=== PATIENT | male | born 1955 | race Caucasian/White ===

== ENCOUNTER → 2017-01-17 | Outpatient (CLI) | payer MEDICARE, BC ==
--- NOTE | 2017-01-17 15:59 | KCIC ---
PROCEDURE Brain MRI without contrast. HISTORY Headaches. TECHNIQUE Multiplanar and multi sequence magnetic resonance imaging of the brain was performed without contrast. COMPARISON None. FINDINGS There is no restricted diffusion to suggest acute or subacute infarction. There is no susceptibility effect to suggest hemorrhage. There is no mass effect or midline shift. There is no hydrocephalus. There are multiple scattered focal areas of T2/FLAIR hyperintensity within the cerebral white matter, a nonspecific finding. 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 The orbits are unremarkable. There is mild left frontal and left anterior ethmoid sinus mucosal thickening. There is fluid within the bilateral mastoid air cells. There are normal flow voids within the cerebral vessels. IMPRESSION 1. No acute intracranial finding. 2. Multiple scattered focal areas of signal change within the cerebral white matter, a nonspecific finding likely due to chronic small vessel disease. The possibility of superimposed foci of signal change due to chronic migraine headaches can also be considered given the patient history. 3. Mild left frontal and anterior left ethmoid sinus mucosal thickening and fluid within the bilateral mastoid air cells. Electronically signed by: Dawna Cuevas (Jan 17, 2017 15:58:54)
== END | disposition home or self-care (01) ==
LOC: KCIC MRI 15:05
PROVIDERS: ATTEND Family Medicine
DX: R51 Headache (principal)
CPT/HCPCS: 70551

== ENCOUNTER → 2017-07-12 | Day surgery (SDC) | payer MEDICARE, BC ==
[~2017-07-12] MED LIST: ASPI-630 PO; CLOP75TA PO; CRESTOR10 MG PO; DULA1.5P SQ; FURO20TA3 PO; HYDROmorphone 2 MG/ML VIAL IV PRN; INSU100V13 SQ; INSU100V31 SQ; IV RINGERS,LACTATED 1000ML 1,000 ML IV SCH; LIDOCAINE 1% 1 ML SYRINGE. ID PRN; LIDOCAINE 2% PF Vial for OR 5 ML VIAL. ONE; LOSA50TA6 PO; METF-620 PO; METO50TA2 PO; METOPROLOL TARTRATE 5 MG/5 ML VIAL. IVP ONE; METOPROLOL TARTRATE 5 MG/5 ML VIAL. ONE; MORPHINE SULFATE 2 MG/ML DISP.SYRIN. IV PRN; ONDANSETRON PF 4 MG/2 ML VIAL. IV PRN; PANT40TA5 PO; PROCHLORPERAZINE 10 MG/2 ML VIAL. IV PRN; PROPOFOL 40 ML IV ONE; QUET25TA5 PO; fentaNYL PF VIAL 100 MCG/2 ML VIAL IV PRN
[2017-07-12 10:21] VITALS: BP 116/64
--- NOTE | 2017-07-13 11:05 | PATHOLOGY ---
PATHOLOGY REPORT * * * * * * * * FINAL DIAGNOSIS: A. Duodenal biopsies: - No significant pathologic abnormalities. B. Colonic mucosa, random colon biopsies: - No significant pathologic abnormalities. C. Colon biopsies, cecal polyp: - Tubular adenoma. D. Colon biopsies, transverse colon polyp: - Tubular adenoma. (JPM:epifanio; 07/13/2017) COMMENT: Sections of the duodenal biopsy reveal multiple segments of duodenal and small intestine mucosa. Where best oriented, the mucosal villi appear normal. There are no sprue-like changes or significant inflammatory changes. Sections of the random colon biopsy reveal multiple segments of colonic mucosa containing a few mucosal-associated lymphoid aggregates. There is no evidence of a chronic destructive colitis, lymphocytic colitis, or collagenous colitis. : Sections of the cecal and transverse colon biopsies reveal tubular adenomas showing no high-grade dysplasia or evidence of malignancy. (JPM:epifanio; 07/13/2017) REPORT ELECTRONICALLY SIGNED BY: Joshua Mejia M.D. DATE/TIME: 07/13/2017 11:04 * * * * * * * * GROSS PATHOLOGY: A. Received in formalin labeled "Valente Arizmendi, duodenal biopsy, r/o sprue," are multiple segments of howard soft tissue measuring from 0.1 up to 0.3 cm in maximum dimension. The specimen is submitted entirely in cassette A1. B. Received in formalin labeled "random colon, diarrhea," are multiple segments of howard soft tissue measuring from 0.1 up to 0.3 cm in maximum dimension. The specimen is submitted entirely in cassette B1. C. Received in formalin labeled "cecal polyp biopsy," are two segments of howard soft tissue measuring 0.6 and 0.8 cm in maximum dimension. The specimen is submitted entirely in cassette C1. D. Received in formalin labeled "transverse colon polyp," are several segments of howard soft tissue measuring from 0.4 up to 0.8 cm in maximum dimension. The specimen is submitted entirely in cassette D1. (JPM; 07/12/17) INITIAL CPT CODE(S): A; 11155 B; 20776 C; 89843 D; 55180 Professional services performed by [facility] at [facility] [address] [place] [id number] Technical services performed by [facility] at [address] [place] [address], [address], [place] [address]. SPECIMEN(S) RECEIVED: A.Duodenal biopsy, r/o celiac B.Random colon biopsy for diarrhea C.Cecal polyp biopsy D.Transverse colon polyp CLINICAL HISTORY: GERD, diarrhea PATIENT: TETOVALENTE MOORE /AGE: 111/24/1955 (Age: 61) PATIENT #: [id number] ALT CASE #: SPECIMEN COLLECTION DATE: 07/12/2017 SPECIMEN RECEIVED DATE: 07/12/2017 [facility] - [address] [place] [address] - PHONE: [phone] * * * END OF REPORT * * *
== END | disposition home or self-care (01) ==
LOC: ENDOS 07:34
PROVIDERS: ATTEND Internal Medicine Gastroenterology
DX: D12.0 Benign neoplasm of cecum (principal); K63.5 Polyp of colon; K29.50 Unspecified chronic gastritis without bleeding; K31.89 Other diseases of stomach and duodenum; E11.42 Type 2 diabetes mellitus with diabetic polyneuropathy; E78.00 Pure hypercholesterolemia, unspecified; I11.9 Hypertensive heart disease without heart failure; J44.9 Chronic obstructive pulmonary disease, unspecified; E66.9 Obesity, unspecified; Z68.44 Body mass index [BMI] 60.0-69.9, adult; F41.9 Anxiety disorder, unspecified; F32.9 Major depressive disorder, single episode, unspecified; Z86.69 Personal history of other diseases of the nervous system and sense organs; Z87.39 Personal history of other diseases of the musculoskeletal system and connective tissue; Z90.49 Acquired absence of other specified parts of digestive tract; Z86.39 Personal history of other endocrine, nutritional and metabolic disease
CPT/HCPCS: 43239; 45380; 45385; 88305; J2704; J3490; J2001

== ENCOUNTER → 2017-08-31 | Outpatient (CLI) | payer MEDICARE, BC ==
[2017-07-12 10:21] VITALS: BP 116/64
[~2017-08-31] MED LIST changes: -HYDROmorphone 2 MG/ML VIAL IV PRN; -IV RINGERS,LACTATED 1000ML 1,000 ML IV SCH; -LIDOCAINE 1% 1 ML SYRINGE. ID PRN; -LIDOCAINE 2% PF Vial for OR 5 ML VIAL. ONE; -METOPROLOL TARTRATE 5 MG/5 ML VIAL. IVP ONE; -METOPROLOL TARTRATE 5 MG/5 ML VIAL. ONE; -MORPHINE SULFATE 2 MG/ML DISP.SYRIN. IV PRN; -ONDANSETRON PF 4 MG/2 ML VIAL. IV PRN; -PROCHLORPERAZINE 10 MG/2 ML VIAL. IV PRN; -PROPOFOL 40 ML IV ONE; -fentaNYL PF VIAL 100 MCG/2 ML VIAL IV PRN
--- NOTE | 2017-08-31 09:40 | KCIC ---
MR of the left shoulder Indication: Left shoulder pain for months. Crepitus. Technique: Standard multiplanar sequences are obtained. Findings: Mild motion degradation. Acromioclavicular joint: Mildly degenerative. Small undersurface osteophytes. Mass effect upon the supraspinatus with narrowing of the rotator cuff outlet. Rotator cuff: Thickening and signal compatible with tendinosis. No measurable tear or rupture. No significant subdeltoid bursal fluid. Glenohumeral cartilage: Mild chondromalacia. Fluid: No significant joint effusion. Labrum: Degenerative tear of the superior labrum. Biceps tendon: Tendinosis. Partial tearing but no complete rupture. Bones: No lesion or acute fracture. Soft tissue: No acute findings. Impression: 1. Rotator cuff tendinosis without measurable tear or rupture. There is narrowing of the rotator cuff outlet with mass effect upon the supraspinatus due to the acromioclavicular joint hypertrophy. 2. Biceps tendinosis with partial tear. 3. Degenerative tear of the superior labrum. Electronically signed by: Roman Mendoza MD (08/31/2017 9:37 AM) [facility]
== END | disposition home or self-care (01) ==
LOC: KCIC MRI 07:44
PROVIDERS: ATTEND Nurse Practitioner Family
DX: S43.402A Unspecified sprain of left shoulder joint, initial encounter (principal); M24.812 Other specific joint derangements of left shoulder, not elsewhere classified; X58.XXXA Exposure to other specified factors, initial encounter; Y93.89 Activity, other specified; Y92.89 Other specified places as the place of occurrence of the external cause; Y99.8 Other external cause status
CPT/HCPCS: 73221

== ENCOUNTER → 2017-09-21 | Outpatient (CLI) | payer MEDICARE, BC ==
[2017-07-12 10:21] VITALS: BP 116/64
--- NOTE | 2017-09-21 11:50 | KCIC ---
MR of the right shoulder Indication: Right shoulder pain chronically. Decreased range of motion. Prior surgery x2. Technique: Standard multiplanar sequences are obtained. Findings: Acromioclavicular joint: Deficient, compatible with prior surgery. Small fluid collection in the area. Rotator cuff: Diffuse thickening and signal compatible with tendinosis. Deep undersurface tear of the supraspinatus tendon, measures about 1 cm AP diameter. Greater than 90 percent deep. The overlying bursal layer is irregular. Trace fluid in the subdeltoid bursa. Partial tearing through the infraspinatus tendon. Partial subscapularis tendon tear. Glenohumeral cartilage: No acute defect or advanced DJD. Fluid: Only trace joint fluid. Labrum: Heterogeneous intermediate signal and blunting of the superior labrum compatible with degeneration. No clear cut labral detachment. Biceps tendon: Biceps tendon thickening compatible with tendinosis, with partial tearing at the bicipital groove entrance. Bones: No lesion or acute fracture. Soft tissue: No acute findings. Impression: 1. Generalized rotator cuff tendinosis. Deep undersurface tear of the supraspinatus tendon, with lesser partial tearing through the remaining rotator cuff. 2. Superior labral degeneration. 3. Biceps tendinosis, with partial tear. 4. Postsurgical changes at the acromioclavicular joint with mild fluid collection or cyst in the bed. Electronically signed by: Roman Mendoza MD (09/21/2017 11:46 AM) [id number]
== END | disposition home or self-care (01) ==
LOC: KCIC MRI 10:03
PROVIDERS: ATTEND Nurse Practitioner Family
DX: S46.911A Strain of unspecified muscle, fascia and tendon at shoulder and upper arm level, right arm, initial encounter (principal); Z98.890 Other specified postprocedural states; X58.XXXA Exposure to other specified factors, initial encounter; Y93.89 Activity, other specified; Y92.89 Other specified places as the place of occurrence of the external cause; Y99.8 Other external cause status
CPT/HCPCS: 73221